=== PATIENT | female | born 1965 | race Caucasian/White ===

== ENCOUNTER 2017-09-03 08:28 | Emergency (ER) | payer BC, OTHER ==
[~2017-09-03] VITALS: Ht 157.5 cm; Wt 96.9 kg
[~2017-09-03 08:28] MED LIST: ALUMSUS2 PO; B COCAP3 PO; MAGN500T7 PO; MISCCAP80 PEG; OMEG-62 PO
[2017-09-03 08:34] VITALS: TEMP 36.9; Ht 157.5 cm; Wt 96.9 kg
[2017-09-03] MEDS ORDERED: ALBUT/IPRATROP 3MG/0.5MG NEB 3 ML VIAL INH STA (08:52)
[2017-09-03 09:20] LABS: BASO % 0.1 %; BASO ABS # 0.01 K/uL (0-0.2); EOS % 0.8 %; EOS ABS # 0.09 K/uL (0-0.5); HEMATOCRIT 44.5 % (37-47); HEMOGLOBIN 14.5 g/dL (12.0-16.0); IG# 0.04 K/uL (0.00-0.02); LYMPH % 13.6 %; LYMPH ABS # 1.54 K/uL (1.2-3.4); MEAN CELL VOLUME 83.5 fL (80-100); MEAN CORPUSCULAR HEMOGLOBIN 27.2 pg (25-34); MEAN CORPUSCULAR HGB CONC 32.6 g/dl (32-36); MEAN PLATELET VOLUME 10.3 fL (7.4-10.4); MONO % 7.3 %; MONO ABS # 0.83 K/uL (0.11-0.59); NEUT % 77.8 %; NEUT ABS # 8.83 K/uL (1.4-6.5); PLATELET COUNT 252 K/uL (130-400); RED CELL DISTRIBUTION WIDTH CV 13.5 % (11.5-14.5); RED CELL DISTRIBUTION WIDTH SD 41.2 fL (36.4-46.3); WHITE BLOOD COUNT 11.34 K/uL (4.8-10.8)
[2017-09-03 09:36] LABS: CALCIUM 8.8 mg/dl (8.5-10.1); CREATININE 0.94 mg/dl (0.60-1.20); POTASSIUM 4.1 mmol/L (3.5-5.1)
--- NOTE | 2017-09-03 09:50 | DIAGNOSTIC IMAGING REPORT ---
TWO VIEW CHEST CLINICAL HISTORY: Cough of several weeks' duration. FINDINGS: PA and lateral chest radiographs are compared to study dated 02/01/2016. The cardiomediastinal silhouette is unremarkable. The lungs and pleural spaces are clear. There is no pneumothorax. The skeletal structures are osteopenic. The bony thorax appears intact. Cholecystectomy clips are noted in the right upper quadrant. . IMPRESSION: No active disease in the chest. Electronically signed by: Jose Otero M.D. 09/03/2017 9:48 AM Dictated Date/Time: 09/03/2017 9:48 AM
[2017-09-03] MEDS ORDERED: RANI150T3 PO (10:13)
[2017-09-03] MEDS ORDERED: PRLSR20 PO (10:13)
[2017-09-03] MEDS ORDERED: FAMO20TA11 PO (10:13)
[2017-09-03] MEDS ORDERED: AZITTAB PO (10:15)
[2017-09-03] MEDS ORDERED: PRED20TA2 PO (10:15)
[2017-09-03 10:35] VITALS: BP 142/78; PULSE 74; O2SAT 98
--- NOTE | 2017-09-03 17:08 | EMERGENCY ROOM VISIT NOTE ---
ED Visit Note First contact with patient: 08:40 Chief Complaint: I have a really bad cough. History of Present Illness: Ms. Proctor is a 51-year-old white female who ambulates into the ED complaining of a severe cough. Patient reports that she has had a severe cough for the last 2-3 weeks. She was seen at a local urgent care shortly after her symptoms started. She reports in chest x-ray was performed and was told she did not have pneumonia. She was placed on a narcotic cough suppressant. She reports since that time her symptom has not resolved. Currently patient is complaining of a constant cough. She reports it has been ongoing for the last 2 weeks. Her cough has been nonproductive. She reports when she has her cough close to a meal time she develops posttussive vomiting. She has been taking her narcotic antitussive without relief of her discomfort. She has not identified any aggravating factors related to the cough. Associated with her cough she reports when she is coughing she intermittently hears wheezing. Additionally she reports when she woke up this morning she reports she noticed a gagging sensation in the back of her throat making swallowing difficult. Since that time it has been constant. She denies [place] pain in the area. She denies any aggravating or alleviating factors related to the symptoms. Patient denies fevers, chills, sweats, skin eruptions, skin color changes, sinus congestion/drainage, ear pain/pressure, painful talking, drooling, neck pain/stiffness, chest pains, palpitations, orthopnea, previous clots, claudication, cramping, recent surgery/inactivity/extended travel, tobacco and estrogen use. Review of Systems: As noted above in history of present illness. All body systems were reviewed and found to be negative as noted above. Past Medical History: Unspecified ulcers, unspecified urinary symptoms, status post cholecystectomy and childbirth. Current Medications: Pepcid, Zantac, Prilosec. Allergies to Medications: Aspirin. Social History: Patient is currently employed; she lives with her and feels safe in her home environment; she denies tobacco and alcohol use. Physical Examination: Vital Signs: Date Time Temp Pulse Resp B/P (MAP) Pulse Ox O2 Delivery O2 Flow Rate FiO2 09/03/17 10:35 74 16 142/78 98 09/03/17 09:51 85 18 149/98 97 Room Air 09/03/17 08:34 36.9 99 18 156/109 97 Room Air 09/03/17 08:34 96 Room Air GENERAL: 51-year-old female in mild distress due to pain, nontoxic-appearing, afebrile and hemodynamically stable. NEUROLOGICAL: Awake, alert and oriented to person, place and time. Answering questions appropriately and following commands. Normal gait. Good hand eye coordination. No focal motor sensory deficits. SKIN: Warm, dry and pink. No soft tissue eruptions or trauma noted. HEENT: Atraumatic and normocephalic. No erythema or tenderness over the frontal or maxillary sinuses. PERRLA. Sclera white and conjunctiva pink without drainage. No drainage from naris with audible congestion. Oral cavity moist and pink. Airway patent. Uvula is midline. The uvula is mildly erythematous and slightly translucent without any purulent material. No visible abscesses. Pharynx is nonerythematous or edematous. No tonsillar hypertrophy or exudates. Speech normal. No lymphadenopathy. Trachea midline. No jugular venous distention. No laryngeal tenderness. No auditory or ausculatory stridor. BACK: No tenderness over the bony cervical and thoracic spine. Full range of motion of the cervical spine. No nuchal rigidity or meningismus. THORAX: Lungs sounds are decreased bilaterally with scattered inspiratory wheezing. Equal bilaterally with symmetrical chest wall. No rales or rhonchi. No crepitus, tenderness, subcutaneous air or deformities noted. HEART: Regular rate and rhythm. No gallops, rubs or murmurs are appreciated. ABDOMEN: Obese soft and nontender. Positive bowel sounds in all quadrants. No guarding, rigidity or organomegaly. EXTREMITIES: Moves all extremities well on command and with purpose. All distal neurovascular statuses are intact and equal bilaterally. No calf tenderness or cords. ED Course: Patient is assessed as noted above. Patient's medication list was reviewed. Laboratory Testing: Test 09/03/17 08:52 Range/Units White Blood Count 11.34 4.8-10.8 K/uL Red Blood Count 5.33 4.2-5.4 M/uL Hemoglobin 14.5 12.0-16.0 g/dL Hematocrit 44.5 37-47 % Mean Corpuscular Volume 83.5 80-100 fL Mean Corpuscular Hemoglobin 27.2 25-34 pg Mean Corpuscular Hemoglobin Concent 32.6 32-36 g/dl Platelet Count 252 130-400 K/uL Mean Platelet Volume 10.3 7.4-10.4 fL Neutrophils (%) (Auto) 77.8 % Lymphocytes (%) (Auto) 13.6 % Monocytes (%) (Auto) 7.3 % Eosinophils (%) (Auto) 0.8 % Basophils (%) (Auto) 0.1 % Neutrophils # (Auto) 8.83 1.4-6.5 K/uL Lymphocytes # (Auto) 1.54 1.2-3.4 K/uL Monocytes # (Auto) 0.83 0.11-0.59 K/uL Eosinophils # (Auto) 0.09 0-0.5 K/uL Basophils # (Auto) 0.01 0-0.2 K/uL RDW Standard Deviation 41.2 36.4-46.3 fL RDW Coefficient of Variation 13.5 11.5-14.5 % Immature Granulocyte % (Auto) 0.4 % Immature Granulocyte # (Auto) 0.04 0.00-0.02 K/uL Sodium Level 137 136-145 mmol/L Potassium Level 4.1 3.5-5.1 mmol/L Chloride Level 104 98-107 mmol/L Carbon Dioxide Level 26 21-32 mmol/L Anion Gap 7.0 3-11 mmol/L Blood Urea Nitrogen 7 7-18 mg/dl Creatinine 0.94 0.60-1.20 mg/dl Est Creatinine Clear Calc Drug Dose 78.7 ml/min Estimated GFR () 82.6 Estimated GFR (Non- 71.2 BUN/Creatinine Ratio 7.2 10-20 Random Glucose 102 70-99 mg/dl Calcium Level 8.8 8.5-10.1 mg/dl Chest X-Ray: Was read by myself and the radiologist showing no acute infiltrates , effusions or pneumothorax. Normal heart silhouette and bony anatomy. Radiologist noted cholecystectomy clamps in the right upper quadrant. Patient was given an albuterol/Atrovent nebulizer breathing treatment. Patient was reassessed after her breathing treatment and she had improved air movement through all lungs maciel and resolution of all wheezing. Patient was educated about today's findings and instructed on her treatment plan ; she verbalized understanding and agreement with this plan. Clinical Impression: Acute bronchitis. Decision-Making: Initially my differential diagnosis I considered pneumonia, pulmonary embolism, bronchitis, and other causes. Disposition: Patient discharged home in stable condition; prior to departure she was reassessed and subjectively reported she was feeling better. Plan: Patient was encouraged to use 2 puffs of her albuterol inhaler with spacer every 6 hours for 5 days and as needed for shortness of breath/wheezing or severe coughing episode. Patient was prescribed prednisone 60 mg once a day for 5 days. Patient was encouraged alternate ibuprofen and acetaminophen as needed for pain or fevers. Patient was prescribed a Zithromax pack and instructed on its use. Patient was encouraged to follow-up with her PCP for recheck. Patient was encouraged to return to the ED for worsening cough, worsening shortness of breath, worsening fevers, coughing up blood or any new/concerning symptoms.
== END 2017-09-03 10:35 | disposition home or self-care (01) ==
LOC: C.EDB 08:30
DX: J20.9 Acute bronchitis, unspecified (principal); Z88.6 Allergy status to analgesic agent